=== PATIENT | male | born 1995 | race Caucasian/White ===

== ENCOUNTER 2019-04-14 12:24 | Emergency (ER) | payer OTHER ==
[2019-04-14] MEDS ORDERED: FENTANYL CITR 100 MCG/2 ML ONE ×2 (12:37→13:54)
--- NOTE | 2019-04-14 13:05 | RAD REPORT ---
EXAM DESCRIPTION: RAD - Wrist Right 3 View - 04/14/2019 12:57 pm CLINICAL HISTORY: DEFORMITY Pain COMPARISON: None FINDINGS: Right wrist and right hand- multiple projections are submitted Fracture of the distal radius is seen with mild impaction and comminution. Perilunate dislocation is noted. IMPRESSION: Distal radius fracture with perilunate dislocation.
[2019-04-14] MEDS ORDERED: LIDOCAINE 1% MPF 30 ML VIAL ONE (13:07)
[2019-04-14] MEDS ORDERED: propofoL 200 MG/20 ML VIAL IV ONE (13:49)
--- NOTE | 2019-04-14 14:43 | ER ---
Nurse's Notes [facility] Name: Brian Hernandez Age: 23 yrs Sex: Male : 1995 Arrival Date: 04/14/2019 Time: 12:25 Bed 4 Private MD: Diagnosis: Colles' fracture of right radius;Dislocation of distal radioulnar joint of right wrist Presentation: 04/13 12:30 Chief complaint: Patient states: Deformity on R wrist. Caught had in a spinning spool ca1 and crushed R hand. Coronavirus screen: The patient has NOT traveled to [place] in the past 14 days. The patient has NOT had contact with known and/or suspected case of Coronavirus. Ebola Screen: Patient negative for fever greater than or equal to 101.5 degrees Fahrenheit, and additional compatible Ebola Virus Disease symptoms Patient denies exposure to infectious person. Patient denies travel to an Ebola-affected area in the 21 days before illness onset. No symptoms or risks identified at this time. Initial Sepsis Screen: Does the patient meet any 2 criteria? No. Patient's initial sepsis screen is negative. Does the patient have a suspected source of infection? No. Patient's initial sepsis screen is negative. Risk Assessment: Do you want to hurt yourself or someone else? Patient reports no desire to harm self or others. Onset of symptoms was April 14, 2019. 12:30 Method Of Arrival: Ambulatory ca1 12:30 Acuity: DEMARCUS 3 ca1 Triage Assessment: 12:33 Musculoskeletal: Bony deformity noted of right wrist. ca1 Historical: - Allergies: 12:32 No Known Allergies; ca1 - Home Meds: 12:32 None [Active]; ca1 - PMHx: 12:32 None; ca1 - PSHx: 12:32 None; ca1 - Immunization history:: Adult Immunizations up to date, Last tetanus immunization: up to date Flu vaccine is up to date. - Social history:: Smoking status: Patient reports the use of cigarette tobacco products, smokes one-half pack cigarettes per day. Screenin:00 Abuse screen: Denies threats or abuse. Denies injuries from another. Nutritional ph screening: No deficits noted. Tuberculosis screening: No symptoms or risk factors identified. Fall Risk None identified. Assessment: 13:30 General: Appears in no apparent distress. uncomfortable, slender, Behavior is calm, ph cooperative, appropriate for age. Pain: Complains of pain in right wrist. Neuro: Level of Consciousness is awake, alert, obeys commands. Cardiovascular: Capillary refill < 3 seconds in bilateral fingers Patient's skin is warm and dry. Respiratory: Airway is patent Respiratory effort is even, unlabored. Derm: Skin is healthy with good turgor, Skin is pink, warm \T\ dry. Musculoskeletal: Circulation, motion, and sensation intact. Range of motion: limited in right wrist Bony deformity noted of right wrist. 14:15 Reassessment: Patient appears in no apparent distress at this time. Patient and/or ph family updated on plan of care and expected duration. Pain level reassessed. Dr Tristan at bedside for conscious sedation and reduction of R wrist. Vital Signs: 12:30 BP 178 / 98; Pulse 55; Resp 20 S; Temp 97.1(TE); Pulse Ox 95% on R/A; Weight 90.72 kg ca1 (R); Height 6 ft. 3 in. (190.50 cm) (R); Pain 10/10; 13:30 BP 167 / 98; Pulse 56; Resp 18; Temp 97.2; Pulse Ox 100% on R/A; ph 14:30 BP 158 / 92; Pulse 62; Resp 18; Temp 98.0; Pulse Ox 99% on R/A; ph 12:30 Body Mass Index 25.00 (90.72 kg, 190.50 cm) ca1 ED Course: 12:25 Patient arrived in ED. mr 12:26 Deon Tristan MD is Attending Physician. tw4 12:31 Triage completed. ca1 12:32 Arm band placed on left wrist. ca1 12:33 Inserted saline lock: 20 gauge in left antecubital area, using aseptic technique. ca1 12:38 Hazel Blanca, ENDY is Primary Nurse. vc 13:08 XRAY Hand RIGHT 3 View In Process Unspecified. EDMS 13:08 XRAY Wrist RIGHT 3 view In Process Unspecified. EDMS 13:30 Patient has correct armband on for positive identification. Bed in low position. Call ph light in reach. Side rails up X2. hall monitor on. Pulse ox on. NIBP on. Door closed. Noise minimized. Warm blanket given. Consent for conscious sedation explained by physician, signed by patient. 14:15 Assist provider with fracture care of right wrist Fracture is closed. Obvious deformity ph is noted. Circulation, motor and sensation is intact. Set up for procedure. Performed by Deon Tristan MD Reduced with physical manipulation. Immobilized with OCL splint, Post immobilization, circulation, motor and sensation remain intact. Patient tolerated well. 14:36 Wrist Right 3 View XRAY In Process Unspecified. EDMS 14:37 Castillo Gonzalez MD is Referral Physician. tw4 14:41 Kwame Reddy MD is Referral Physician. tw4 15:00 IV discontinued, intact, bleeding controlled, No redness/swelling at site. Pressure ph dressing applied. Administered Medications: 12:37 Drug: fentaNYL (PF) 100 mcg Route: IVP; Site: left antecubital; vc 13:55 Drug: fentaNYL (PF) 50 mcg Route: IVP; Site: left antecubital; ph 14:30 Follow up: Response: No adverse reaction ph 14:00 Drug: Propofol 100 mg {Note: per Dr Tristan.} Route: IVP; Site: left antecubital; ph 14:15 Follow up: Response: No adverse reaction; Patient is sedated; RASS: Light sedation (-2) ph 14:03 Drug: Propofol 100 mg {Note: per Dr Tristan.} Route: IVP; Site: left antecubital; ph 14:15 Follow up: Response: No adverse reaction; Patient is sedated; RASS: Light sedation (-2) ph 14:14 Drug: fentaNYL (PF) 50 mcg Route: IVP; Site: left antecubital; ph 14:30 Follow up: Response: No adverse reaction ph 15:07 Drug: TORadol 30 mg Route: IVP; Site: left antecubital; ph 15:30 Follow up: Response: No adverse reaction ph 15:07 Drug: [place] 10 mg-325 mg 1 tabs Route: PO; ph 15:16 Follow up: Response: No adverse reaction; Medication administered at discharge. ph Outcome: 14:42 Discharge ordered by . tw4 15:16 Patient left the ED. ph 15:16 Discharged to home ambulatory, with family. ph 15:16 Condition: improved 15:16 Discharge instructions given to patient, family, Instructed on discharge instructions, follow up and referral plans. medication usage, Demonstrated understanding of instructions, follow-up care, medications, Prescriptions given X 3. Signatures: Dispatcher [employer] WHITMS Garvey, Jessiac mr Kevin, Dottie, RN RN ph Deon Tristan MD MD tw4 Sarina Griffin RN RN ca1 Hazel Blanca RN RN vc
--- NOTE | 2019-04-14 14:43 | EDPHYS ---
Physician Documentation [facility] Name: Brian Hernandez Age: 23 yrs Sex: Male : 1995 Arrival Date: 04/14/2019 Time: 12:25 Bed 4 Private MD: ED Physician Deon Tristan HPI: 04/13 21:01 This 23 yrs old Male presents to ER via Ambulatory with complaints of Wrist tw4 Injury, Hand Injury. 21:01 The patient or guardian reports decreased range of motion, deformity, injury. The tw4 complaints affect the right wrist diffusely. Context: The problem was sustained at an industrial site, resulted from a direct blow, by a heavy object, by industrial equipment. Onset: The symptoms/episode began/occurred just prior to arrival. Modifying factors: The symptoms are alleviated by nothing, the symptoms are aggravated by movement. Associated signs and symptoms: The patient has no apparent associated signs or symptoms. Compartment Syndrome unable to determine. The patient has not experienced similar symptoms in the past. Historical: - Allergies: 12:32 No Known Allergies; ca1 - Home Meds: 12:32 None [Active]; ca1 - PMHx: 12:32 None; ca1 - PSHx: 12:32 None; ca1 - Immunization history:: Adult Immunizations up to date, Last tetanus immunization: up to date Flu vaccine is up to date. - Social history:: Smoking status: Patient reports the use of cigarette tobacco products, smokes one-half pack cigarettes per day. ROS: 21:01 Constitutional: Negative for fever, chills, and weight loss, Eyes: Negative for injury, tw4 pain, redness, and discharge, Cardiovascular: Negative for chest pain, palpitations, and edema, Respiratory: Negative for shortness of breath, cough, wheezing, and pleuritic chest pain, Abdomen/GI: Negative for abdominal pain, nausea, vomiting, diarrhea, and constipation, Skin: Negative for injury, rash, and discoloration, Neuro: Negative for headache, weakness, numbness, tingling, and seizure. 21:01 MS/extremity: Positive for injury or acute deformity, decreased range of motion, deformity. Exam: 21:01 Hand exam: Exam is positive for decreased range of motion, deformity, swelling, tw4 tenderness, ROM: limited active range of motion due to pain, in the right wrist, limited passive range of motion due to pain. 21:01 Constitutional: This is a well developed, well nourished patient who is awake, alert, and in no acute distress. Head/Face: Normocephalic, atraumatic. Chest/axilla: Normal chest wall appearance and motion. Nontender with no deformity. No lesions are appreciated. Cardiovascular: Regular rate and rhythm with a normal S1 and S2. No gallops, murmurs, or rubs. Normal PMI, no JVD. No pulse deficits. Respiratory: Lungs have equal breath sounds bilaterally, clear to auscultation and percussion. No rales, rhonchi or wheezes noted. No increased work of breathing, no retractions or nasal flaring. Abdomen/GI: Soft, non-tender, with normal bowel sounds. No distension or tympany. No guarding or rebound. No evidence of tenderness throughout. Vital Signs: 12:30 BP 178 / 98; Pulse 55; Resp 20 S; Temp 97.1(TE); Pulse Ox 95% on R/A; Weight 90.72 kg ca1 (R); Height 6 ft. 3 in. (190.50 cm) (R); Pain 10/10; 13:30 BP 167 / 98; Pulse 56; Resp 18; Temp 97.2; Pulse Ox 100% on R/A; ph 14:30 BP 158 / 92; Pulse 62; Resp 18; Temp 98.0; Pulse Ox 99% on R/A; ph 12:30 Body Mass Index 25.00 (90.72 kg, 190.50 cm) ca1 Procedures: 14:32 Splinting: Splint applied to dorsal aspect of right forearm, right wrist and palmar tw4 aspect of right forearm using Ortho 3D boot, Orthoglass splint, applied by myself. tech. post reduction film - reveals improved alignment, Examined by me, post splint application: neurovascular intact, 2+ distal pulses palpable, brisk capillary refill noted, Patient tolerated well. Moderate sedation: Pre-procedure assessment: ASA physical classification: I - healthy, no underlying organic disease, Airway assessment: able to hyperextend neck, able to maintain airway, can open mouth without difficulty, Mallampati classification of tongue size: I - faucial pillars, soft palate, and uvula can be fully visualized, Monitoring during procedure: diagnostic cardiac sonographer, continuous pulse oximetry, nurse at bedside at all times, Medications employed: propofol. MDM: 12:26 Patient medically screened. tw4 14:32 Differential diagnosis: dislocation, open fracture, closed fracture, tendonitis. Data tw4 reviewed: vital signs, nurses notes. Data reviewed: radiologic studies, plain films. Data interpreted: Pulse oximetry: Interpretation:. Test interpretation: by ED physician or midlevel provider: plain radiologic studies. Counseling: I had a detailed discussion with the patient and/or guardian regarding: the historical points, exam findings, and any diagnostic results supporting the discharge/admit diagnosis. Medication response: fentanyl. Response to treatment: the patient's symptoms have markedly improved after treatment. Special discussion: I discussed with the patient/guardian in detail that at this point there is no indication for admission to the hospital. It is understood, however, that if the symptoms persist or worsen the patient needs to return immediately for re-evaluation. Based on the history and exam findings, there is no indication for further emergent testing or inpatient evaluation. I discussed with the patient/guardian the need to see the orthopedic surgeon for further evaluation of the symptoms. 04/13 12:30 Order name: XRAY Hand RIGHT 3 View ca1 04/13 12:30 Order name: XRAY Wrist RIGHT 3 view ca1 04/13 14:05 Order name: Wrist Right 3 View XRAY tw4 Administered Medications: 12:37 Drug: fentaNYL (PF) 100 mcg Route: IVP; Site: left antecubital; vc 13:55 Drug: fentaNYL (PF) 50 mcg Route: IVP; Site: left antecubital; ph 14:30 Follow up: Response: No adverse reaction ph 14:00 Drug: Propofol 100 mg {Note: per Dr Tristan.} Route: IVP; Site: left antecubital; ph 14:15 Follow up: Response: No adverse reaction; Patient is sedated; RASS: Light sedation (-2) ph 14:03 Drug: Propofol 100 mg {Note: per Dr Tristan.} Route: IVP; Site: left antecubital; ph 14:15 Follow up: Response: No adverse reaction; Patient is sedated; RASS: Light sedation (-2) ph 14:14 Drug: fentaNYL (PF) 50 mcg Route: IVP; Site: left antecubital; ph 14:30 Follow up: Response: No adverse reaction ph 15:07 Drug: TORadol 30 mg Route: IVP; Site: left antecubital; ph 15:30 Follow up: Response: No adverse reaction ph 15:07 Drug: [place] 10 mg-325 mg 1 tabs Route: PO; ph 15:16 Follow up: Response: No adverse reaction; Medication administered at discharge. ph Disposition: 04/14/19 14:42 Discharged to Home. Impression: Colles' fracture of right radius, Dislocation of distal radioulnar joint of right wrist. - Condition is Stable. - Discharge Instructions: Wrist Fracture Treated With Immobilization. - Prescriptions for Ibuprofen 800 mg Oral Tablet - take 1 tablet by ORAL route every 8 hours As needed take with food; 30 tablet. Tramadol 50 mg Oral Tablet - take 1 tablet by ORAL route every 8 hours as needed; 12 tablet. Tylenol- Codeine #3 300-30 mg Oral Tablet - take 2 tablet by ORAL route every 6 hours As needed; 30 tablet. - Medication Reconciliation Form, Thank You Letter, Antibiotic Education, Prescription Opioid Use form. - Follow up: Castillo Gonzalez MD; When: Upon discharge from the Emergency Department; Reason: Recheck today's complaints, Continuance of care. Follow up: Kwame Reddy MD; When: Upon discharge from the Emergency Department; Reason: If symptoms return, Recheck today's complaints, Continuance of care, Re-evaluation by your physician. - Problem is new. - Symptoms have improved. Signatures: Dispatcher [employer] EDDottie Rai RN RN ph Wadley, Terrence, MD MD tw4 Sarina Griffin RN RN [facility] Hazel Blanca RN RN vc Corrections: (The following items were deleted from the chart) 14:44 14:42 04/14/2019 14:42 Discharged to Home. Impression: Colles' fracture of right tw4 radius. Condition is Stable. Forms are Medication Reconciliation Form, Thank You Letter, Antibiotic Education, Prescription Opioid Use. Follow up: Dr. Castillo Gonzalez; When: Upon discharge from the Emergency Department; Reason: Recheck today's complaints, Continuance of care. Follow up: Kwame Reddy; When: Upon discharge from the Emergency Department; Reason: If symptoms return, Recheck today's complaints, Continuance of care, Re-evaluation by your physician. Problem is new. Symptoms have improved. tw4 15:16 14:44 04/14/2019 14:42 Discharged to Home. Impression: Colles' fracture of right ph radius; Dislocation of distal radioulnar joint of right wrist. Condition is Stable. Discharge Instructions: Wrist Fracture Treated With Immobilization. Prescriptions for Ibuprofen 800 mg Oral Tablet - take 1 tablet by ORAL route every 8 hours As needed take with food; 30 tablet, Tramadol 50 mg Oral Tablet - take 1 tablet by ORAL route every 8 hours as needed; 12 tablet, Tylenol-Codeine #3 300-30 mg Oral Tablet - take 2 tablet by ORAL route every 6 hours As needed; 30 tablet. and Forms are Medication Reconciliation Form, Thank You Letter, Antibiotic Education, Prescription Opioid Use. Follow up: Dr. Castillo Gonzalez; When: Upon discharge from the Emergency Department; Reason: Recheck today's complaints, Continuance of care. Follow up: Kwame Reddy; When: Upon discharge from the Emergency Department; Reason: If symptoms return, Recheck today's complaints, Continuance of care, Re-evaluation by your physician. Problem is new. Symptoms have improved. tw4
--- NOTE | 2019-04-14 14:49 | RAD REPORT ---
EXAM DESCRIPTION: RAD - Wrist Right 3 View - 04/14/2019 2:33 pm CLINICAL HISTORY: PAIN Pain COMPARISON: Wrist Right 3 View dated 04/14/2019 FINDINGS: The previously noted distal radius fracture and perilunate dislocation has been reduced an d placed within a splint. Bone detail is obscured.
[2019-04-14] MEDS ORDERED: KETOROLAC 30 MG/ML INJ ONE (15:04)
[2019-04-14] MEDS ORDERED: HYDROCODONE/APAP 10/325 TAB ONE (15:04)
[2019-04-14 16:19] VITALS: BP 178/98; TEMP 97.1; O2SAT 95
== END 2019-04-14 15:16 | disposition home or self-care (01) ==
LOC: ER 12:24
PROC: 2W3CX1Z Immobilization of Right Lower Arm using Splint (ICD-10-PCS; principal; 2019-04-14)
DX: S52.531A Colles' fracture of right radius, initial encounter for closed fracture (principal); S63.074A Dislocation of distal end of right ulna, initial encounter; W23.0XXA Caught, crushed, jammed, or pinched between moving objects, initial encounter; Y93.9 Activity, unspecified; Y92.9 Unspecified place or not applicable; F17.210 Nicotine dependence, cigarettes, uncomplicated
CPT/HCPCS: 96374; 96375; 99285; J2704; J3010